=== PATIENT | male | born 1940 | race Caucasian/White ===

== ENCOUNTER 2016-04-26 22:54 | Emergency (ER) | payer OTHER, MEDICARE ==
[~2016-04-26] VITALS: Ht 160 cm; Wt 73.0 kg
[~2016-04-26 22:54] MED LIST: ASPI-435 PO; Atorvastatin PO; BICALUTAMIDE PO; CALC600T9 PO; Lupron; Multivitamin PO; Omega-3 PO; Vitamin E PO
[2016-04-26 23:01] VITALS: Ht 160 cm; Wt 73.0 kg
[2016-04-26 23:56] LABS: COMPLETE YES; HEMATOCRIT 28.8 % (42-52); IG% 0.3 %; LYMPH % 25.2 %; LYMPH ABS # 0.86 K/uL (1.2-3.4); MEAN CELL VOLUME 88.6 fL (80-100); MEAN CORPUSCULAR HEMOGLOBIN 29.8 pg (25-34); MEAN CORPUSCULAR HGB CONC 33.7 g/dl (32-36); MEAN PLATELET VOLUME 8.8 fL (7.4-10.4); MONO % 14.1 %; NEUT % 60.4 %; PLATELET COUNT 205 K/uL (130-400); RED BLOOD COUNT 3.25 M/uL (4.7-6.1); WHITE BLOOD COUNT 3.41 K/uL (4.8-10.8)
[2016-04-26 23:57] LABS: URINE APPEARANCE CLEAR (CLEAR); URINE BILIRUBIN NEG (NEG); URINE COLOR DK YELLOW; URINE EPITHELIAL CELL AUTO >30 /lpf (0-5); URINE NITRITE NEG (NEG); URINE SPECIFIC GRAVITY 1.021 (1.000-1.030); UROBILINOGEN NEG (NEG); ZZUR CULT IF INDIC CLEAN CATCH NO
[2016-04-27] LABS: MANUAL MICROSCOPIC REQUIRED? NO; REVIEW REQ? NO
--- NOTE | 2016-04-27 00:47 | EMERGENCY ROOM VISIT NOTE ---
History Report prepared by Julius: Joe Alcala Under the Supervision of: Dr. Keven Cooney M.D. First contact with patient: 23:32 Chief Complaint: FEVER Stated Complaint: HIGH FEVER, CHILLS History of Present Illness The patient is a 75 year old male who presents to the Emergency Room with complaints of a resolved fever that started when he woke up at 1700 tonight. The patient woke up with a fever of 103. He was given two doses of Tylenol, which brought the fever down to 101. His fever resolved at 98 upon arrival to the ED. The patient has also had a cough. He appeared confused to his earlier when his fever was high, but is now back at baseline. The patient denies syncope, rhinorrhea, shortness of breath, diarrhea, burning with urination, swelling of the legs, or rash. The patient has a history of prostate cancer that metastasized. He has been treated with Lupron but did not start chemotherapy. The patient has not had any prostate surgeries. He has had multiple family members that were ill recently. He was vaccinated for influenza this year. Source of History: patient, spouse/significant other Onset: 1700 Position: other (global) Symptom Intensity: 103 Quality: other (febrile) Timing: resolved Modifying Factors (Relieving): tylenol Associated Symptoms: + cough, No SOB, No diarrhea, No rash, No urinary symptoms Note: Negatives: Syncope, rhinorrhea, leg swelling. Review of Systems See HPI for pertinent positives & negatives. A total of 10 systems reviewed and were otherwise negative. Past Medical & Surgical Medical Problems: (1) Appendicitis (2) Prostate CA Family History Diabetes mellitus FHx: cancer Social History Smoking Status: Never Smoker Marital Status: Housing Status: lives with family Current/Historical Medications Scheduled Aspirin (Aspirin 81), 1 TAB PO DAILY Atorvastatin (Lipitor), 40 MG PO DAILY Bicalutamide (Casodex), 50 MG PO DAILY Calcium Carbonate-Vitamin D (Calcium 600+D3), 1 TAB PO DAILY Denosumab (Xgeva), 1 DOSE INJ MONTHLY Fentanyl (Fentanyl), 12 MCG TD [id number] Leuprolide Acetate (Lupron Depot), 1 DOSE INJ every 4 months Multivitamin (Multivitamin), 1 TAB PO DAILY Preston-3 Fatty Acids (Fish Oil 1200 mg), 3,600 MG PO DAILY Vitamin E (E-400), 400 UNIT PO DAILY Allergies Coded Allergies: No Known Allergies (Unverified , 04/27/16) Physical Exam Vital Signs Date Time Temp Pulse Resp B/P Pulse Ox O2 Delivery O2 Flow Rate FiO2 04/27/16 01:29 37.0 71 18 134/82 97 Room Air 04/27/16 00:30 37.1 71 18 129/79 97 Room Air 04/26/16 23:39 74 04/26/16 23:01 37.0 93 16 119/73 96 Room Air Physical Exam GENERAL: Patient is well appearing and in no acute distress. HEENT: No acute trauma, normocephalic atraumatic, mucous membranes moist, no nasal congestion, no scleral icterus. NECK: No stridor, no adenopathy, no meningismus, trachea is midline. LUNGS: No dyspnea. Clear to auscultation and equal bilaterally. No wheeze, no rhonchi. HEART: Regular rate and rhythm. No murmurs, rubs, gallops appreciated. ABDOMEN: Soft, nontender, bowel sounds positive, no masses appreciated, no peritonitis. BACK: No midline tenderness, no CVA tenderness EXTREMITIES: Normal motion all extremities, no cyanosis, no edema. NEUROLOGIC: Alert and oriented, no acute motor or sensory deficits, no focal weakness, cranial nerves grossly intact. SKIN: No rash, no jaundice, no diaphoresis. Medical Decision & Procedures ER Provider Diagnostic Interpretation: X ray results are stated below per my interpretation. CHEST ONE VIEW: Elevated left hemidiaphragm. No infiltrate, no effusion. Normal cardiac border. Laboratory Results 04/26/16 23:30 Red Blood Count 3.25, Mean Corpuscular Volume 88.6, Mean Corpuscular Hemoglobin 29.8, Mean Corpuscular Hemoglobin Concent 33.7, Mean Platelet Volume 8.8, Neutrophils (%) (Auto) 60.4, Lymphocytes (%) (Auto) 25.2, Monocytes (%) (Auto) 14.1, Eosinophils (%) (Auto) 0.0, Basophils (%) (Auto) 0.0, Neutrophils # (Auto ) 2.06, Lymphocytes # (Auto) 0.86, Monocytes # (Auto) 0.48, Eosinophils # (Auto ) 0.00, Basophils # (Auto) 0.00 04/26/16 23:30 Test 04/26/16 23:20 04/26/16 23:30 04/26/16 23:38 04/26/16 23:45 Urine Color DK YELLOW Urine Appearance CLEAR (CLEAR) Urine pH 7.0 (4.5-7.5) Urine Specific [place] 1.021 (1.000-1.030) Urine Protein NEG (NEG) Urine Glucose (UA) NEG (NEG) Urine Ketones NEG (NEG) Urine Occult Blood NEG (NEG) Urine Nitrite NEG (NEG) Urine Bilirubin NEG (NEG) Urine Urobilinogen NEG (NEG) Urine Leukocyte Esterase NEG (NEG) Urine WBC (Auto) 1-5 /hpf (0-5) Urine RBC (Auto) 0-4 /hpf (0-4) Urine Hyaline Casts (Auto) 1-5 /lpf (0-5) Urine Epithelial Cells (Auto) >30 /lpf (0-5) Urine Bacteria (Auto) NEG (NEG) White Blood Count 3.41 K/uL (4.8-10.8) Red Blood Count 3.25 M/uL (4.7-6.1) Hemoglobin 9.7 g/dL (14.0-18.0) Hematocrit 28.8 % (42-52) Mean Corpuscular Volume 88.6 fL (80-100) Mean Corpuscular Hemoglobin 29.8 pg (25-34) Mean Corpuscular Hemoglobin Concent 33.7 g/dl (32-36) Platelet Count 205 K/uL (130-400) Mean Platelet Volume 8.8 fL (7.4-10.4) Neutrophils (%) (Auto) 60.4 % Lymphocytes (%) (Auto) 25.2 % Monocytes (%) (Auto) 14.1 % Eosinophils (%) (Auto) 0.0 % Basophils (%) (Auto) 0.0 % Neutrophils # (Auto) 2.06 K/uL (1.4-6.5) Lymphocytes # (Auto) 0.86 K/uL (1.2-3.4) Monocytes # (Auto) 0.48 K/uL (0.11-0.59) Eosinophils # (Auto) 0.00 K/uL (0-0.5) Basophils # (Auto) 0.00 K/uL (0-0.2) RDW Standard Deviation 52.8 fL (36.4-46.3) RDW Coefficient of Variation 16.2 % (11.5-14.5) Immature Granulocyte % (Auto) 0.3 % Immature Granulocyte # (Auto) 0.01 K/uL (0.00-0.02) Anion Gap 12.0 mmol/L (3-11) Est Creatinine Clear Calc Drug Dose 58.9 ml/min Estimated GFR () 86.2 Estimated GFR (Non- 74.3 BUN/Creatinine Ratio 10.5 (10-20) Calcium Level 8.5 mg/dl (8.5-10.1) Total Bilirubin 0.6 mg/dl (0.2-1) Aspartate Amino Transf (AST/SGOT) 96 U/L (15-37) Alanine Aminotransferase (ALT/SGPT) 25 U/L (12-78) Alkaline Phosphatase 246 U/L (45-117) Total Protein 7.5 gm/dl (6.4-8.2) Albumin 3.2 gm/dl (3.4-5.0) Globulin 4.3 gm/dl (2.5-4.0) Albumin/Globulin Ratio 0.7 (0.9-2) Bedside Lactic Acid Venous 1.05 mmol/L (0.90-1.70) Influenza Type A Antigen Neg for Influ A (NEG) Influenza Type B Antigen Neg for Influ B (NEG) Laboratory results as reviewed by me. ED Course 2335: The patient was evaluated in room A10. A complete history and physical exam was performed. 0034: The patient feels fine at this time. 0118: Reevaluated the patient. Discussed results and discharge instructions: He verbalized understanding and agreement. The patient is ready for discharge. Medical Decision Differential: Viral, Pharyngitis, Cellulitis, Pneumonia, Influenza, Meningitis, Sepsis, Bacteremia, UTI/Pyelonephritis, Endocrine, Toxicologic, amongst other pathologies entertained. 75 yr old male with viral like illness and fevers at home now feeling fine after taking Tylenol at home. Looks well and in no distress. Exam is benign. Family state he was a bit confused with the fever though state he is his normal self now. Labs unremarkable. CXR without infiltrate. Patient breathing comfortably and in no distress through several hours in ER. No evidence of sepsis by examination. Family and he note all other family members with similar illness. No clear indication for abx at this time. Feels comfortable going home and aware RTED at any time if worsening or other concerns. Stable and looks well at discharge. Advised follow up with pcp re anemia and AST/ AlkPhos elevations. No evidence of abdominal infection by examination. Impression Primary Impression: Fever Additional Impression: Anemia Scribe Attestation The scribe's documentation has been prepared under my direction and personally reviewed by me in its entirety. I confirm that the note above accurately reflects all work, treatment, procedures, and medical decision making performed by me. Departure Information Dispostion Home / Self-Care Referrals No Doctor, Assigned (PCP) Forms HOME CARE DOCUMENTATION FORM, IMPORTANT VISIT INFORMATION Patient Instructions A Signature Page, My [facility] Additional Instructions Return if worsening fevers, confusion, vomiting, headache, weakness or other concerns. Please follow up with your primary care provider to discuss your low red blood cell count. Your Liver tests were just mildly elevated. Please discuss this with your primary care provider. If you have abdominal pain please return for further evaluation.
[2016-04-27 00:54] LABS: POTASSIUM 4.2 mmol/L (3.5-5.1)
[2016-04-27 00:59] LABS: BUN/CREATININE RATIO 10.5 (10-20); CALCIUM 8.5 mg/dl (8.5-10.1)
[2016-04-27] MEDS ORDERED: DRGTP12 TD (01:01)
[2016-04-27 01:02] LABS: ALB/GLOB RATIO 0.7 (0.9-2)
[2016-04-27] MEDS ORDERED: VITACAP37 PO (01:02)
[2016-04-27] MEDS ORDERED: MULT-506 PO (01:02)
[2016-04-27] MEDS ORDERED: OMEG5CAP PO (01:03)
[2016-04-27] MEDS ORDERED: ATOR-24 PO (01:03)
[2016-04-27] MEDS ORDERED: CALC-416 PO (01:04)
[2016-04-27] MEDS ORDERED: LEUP11.23 INJ (01:05)
[2016-04-27] MEDS ORDERED: BICA50TA2 PO (01:06)
[2016-04-27] MEDS ORDERED: XGVI INJ (01:06)
[2016-04-27 01:29] VITALS: BP 134/82; PULSE 71; TEMP 37; O2SAT 97
--- NOTE | 2016-04-27 06:43 | DIAGNOSTIC IMAGING REPORT ---
CHEST ONE VIEW PORTABLE CLINICAL HISTORY: Fever. COMPARISON STUDY: No previous studies for comparison. FINDINGS: Lung volumes are diminished. There is no evidence of pulmonary edema. No pneumothorax or pleural effusion is identified. Cardiac size is at the upper limits of normal. IMPRESSION: 1. No acute cardiopulmonary findings. 2. Diminished lung volumes. Electronically signed by: Danny Martin M.D. 04/27/2016 6:41 AM
== END 2016-04-27 01:36 | disposition home or self-care (01) ==
LOC: C.EDB 22:57 → C.EDA 04-27 01:36
DX: R50.9 Fever, unspecified (principal); D64.9 Anemia, unspecified; C61 Malignant neoplasm of prostate; C79.9 Secondary malignant neoplasm of unspecified site; Z79.899 Other long term (current) drug therapy; Z79.82 Long term (current) use of aspirin; Z79.891 Long term (current) use of opiate analgesic; Z80.9 Family history of malignant neoplasm, unspecified